=== PATIENT | male | born 1965 ===

== ENCOUNTER 2017-10-08 01:44 | Emergency (ER) | payer OTHER ==
[2017-10-08 01:57] VITALS: BP 153/91; PULSE 86; RESP 18; TEMP 98.9; O2SAT 99
--- NOTE | 2017-10-08 03:06 | ED PDOC ---
HPI: General Adult Time Seen by Provider: 10/08/17 01:51 Chief Complaint (Nursing): Flu-like Symptoms Chief Complaint (Provider): [place] x 2 days, bodyaches History Per: Patient History/Exam Limitations: no limitations Onset/Duration Of Symptoms: Days Have you had recent travel within the past 21 days to any of the following countries: [place], [place], [place] or [place]?: No Current Symptoms Are (Timing): Still Present Additional Complaint(s): 52 yo male with no medical problems presents with cough for 2 days and bodyaches. Pt denies fever/chills. Pt took tylenol for pain. Past Medical History Reviewed: Historical Data, Nursing Documentation, Vital Signs Vital Signs: Last Vital Signs Temp 98.9 F 10/08/17 01:54 Pulse 86 10/08/17 01:54 Resp 18 10/08/17 01:54 BP 153/91 H 10/08/17 01:54 Pulse Ox 99 10/08/17 01:54 - Medical History PMH: No Chronic Diseases - Surgical History Surgical History: No Surg Hx - Family History Family History: States: No Known Family Hx - Living Arrangements Living Arrangements: With Family - Social History Current smoker - smoking cessation education provided: No - Immunization History Hx Tetanus Toxoid Vaccination: No Hx Influenza Vaccination: No Hx Pneumococcal Vaccination: No - Home Medications Home Medications: Ambulatory Orders Medication Instructions Recorded Ciprofloxacin [Cipro] 500 mg PO BID #14 tab 02/06/16 Oxycodone HCl/Acetaminophen 1 each PO Q6 PRN #10 tablet 02/06/16 [Percocet 5-325 mg Tablet] Tamsulosin [Flomax] 0.4 mg PO DAILY #7 cap 02/06/16 Guaifen/Phenyleph/Acetaminophn 1 tab PO BID #14 tab 10/08/17 [Mucinex Fast-Max Cold & Sinus 325 mg-200 mg-5] Ibuprofen [Motrin Tab] 800 mg PO Q6H PRN #20 tab 10/08/17 - Allergies Allergies/Adverse Reactions: Allergies Allergy/AdvReac Type Severity Reaction Status Date / Time Penicillins Allergy RASH Verified 10/08/17 01:54 Review of Systems ROS Statement: Except As Marked, All Systems Reviewed And Found Negative Constitutional: Positive for: Malaise. Negative for: Fever, Chills Respiratory: Positive for: Cough Physical Exam - Reviewed Nursing Documentation Reviewed: Yes Vital Signs Reviewed: Yes - Physical Exam Appears: Positive for: Well, Non-toxic, No Acute Distress Head Exam: Positive for: ATRAUMATIC, NORMAL INSPECTION, NORMOCEPHALIC Skin: Positive for: Normal Color, Warm, DRY Eye Exam: Positive for: Normal appearance ENT: Positive for: Normal ENT Inspection, Pharynx Is, TM Is/Are Neck: Positive for: Normal, Painless ROM Cardiovascular/Chest: Positive for: Regular Rate, Rhythm Respiratory: Positive for: Normal Breath Sounds. Negative for: Accessory Muscle Use, Respiratory Distress Back: Positive for: Normal Inspection Extremity: Positive for: Normal ROM Neurologic/Psych: Positive for: Alert, Oriented - ECG O2 Sat by Pulse Oximetry: 99 Medical Decision Making Medical Decision Making: Influenza (-) Disposition - Clinical Impression Clinical Impression: Influenza-like symptoms - Patient ED Disposition Is Patient to be Admitted: No Counseled Patient/Family Regarding: Diagnosis, Need For Followup, Rx Given - Disposition Disposition: Routine/Home Disposition Time: 03:06 Condition: GOOD Prescriptions: Guaifen/Phenyleph/Acetaminophn [Mucinex Fast-Max Cold & Sinus 325 mg-200 mg-5] 1 tab PO BID #14 tab Ibuprofen [Motrin Tab] 800 mg PO Q6H PRN #20 tab PRN Reason: Pain Instructions: Viral Syndrome (ED)
== END 2017-10-08 03:43 | disposition home or self-care (01) ==
LOC: H.ER 01:44
DX: B34.9 Viral infection, unspecified (principal); Z88.0 Allergy status to penicillin